=== PATIENT | female | born 1990 | race Caucasian/White ===

== ENCOUNTER 2018-12-29 10:13 | Outpatient (CLI) | payer SELFPAY ==
[2018-12-29 12:09] LABS: ADD UMIC NO; UR ASCORBIC ACID NEGATIVE (NEGATIVE); UR BILIRUBIN (Dip) NEGATIVE (NEGATIVE); UR BLOOD (Dip) NEGATIVE (NEGATIVE); UR CLARITY CLEAR (CLEAR); UR COLOR STRAW (YELLOW); UR GLUCOSE (Dip) NEGATIVE (NEGATIVE); UR KETONES (Dip) NEGATIVE (NEGATIVE); UR LEUKOCYTE ESTERASE (Dip) NEGATIVE Leu/ul (NEGATIVE); UR NITRITE (Dip) NEGATIVE (NEGATIVE); UR SPECIFIC GRAVITY (Dip) 1.004 (1.003-1.030); UR TOTAL PROTEIN (Dip) NEGATIVE (NEGATIVE); UR UROBILINOGEN (Dip) NEGATIVE (NEGATIVE)
[2018-12-29 12:09] LABS: RUPTURE FETAL MEMBRANES NEGATIVE (NEGATIVE)
== END 2018-12-29 13:03 | disposition home or self-care (01) ==
LOC: OBT 10:13 → L-D 10:13 → OBT 13:03
DX: O41.93X0 Disorder of amniotic fluid and membranes, unspecified, third trimester, not applicable or unspecified (principal); Z3A.36 36 weeks gestation of pregnancy
CPT/HCPCS: 76818; 81003; 84112

== ENCOUNTER 2019-01-13 17:22 | Inpatient (IN) | payer SELFPAY ==
[2019-01-13] MEDS ORDERED: MISOPROSTOL 200 MCG TAB PR (18:00)
[2019-01-13] MEDS ORDERED: LIDOCAINE 1% (MPF) 30 ML INJ INJ (18:00)
[2019-01-13] MEDS ORDERED: METHYLERGONOVINE 0.2 MG INJ IM (18:00)
[2019-01-13] MEDS ORDERED: OXYTOCIN 30 UNITS/LR 500 ML IV ×2 (18:00)
[2019-01-13] MEDS ORDERED: IBUPROFEN 600 MG TAB PO (18:00)
[2019-01-13] MEDS ORDERED: CARBOPROST 250 MCG INJ IM (18:00)
[2019-01-13 21:04] LABS: ADD MAN DIFF? NO
[2019-01-13 21:05] LABS: BASOPHIL # 0.1 10^3/ul (0.0-0.1); BASOPHILS % 0.6 % (0.0-2.0); EOSINOPHILS # 0.1 10^3/ul (0.0-0.5); EOSINOPHILS % 0.5 % (0.0-7.0); HEMATOCRIT 34.5 % (37.0-47.0); HEMOGLOBIN 11.2 g/dl (12.0-16.0); LYMPHOCYTES # 2.1 10^3/ul (0.8-2.9); LYMPHOCYTES % 20.2 % (15.0-51.0); MEAN CORPUSCULAR HEMOGLOBIN 28.4 pg (29.0-33.0); MEAN CORPUSCULAR HGB CONC 32.5 g/dl (32.0-37.0); MEAN CORPUSCULAR VOLUME 87.3 fl (82.0-101.0); MEAN PLATELET VOLUME 10.3 fl (7.4-10.4); MONOCYTES % 9.7 % (0.0-11.0); NEUTROPHIL # 6.8 10^3/ul (1.6-7.5); NEUTROPHILS % 66.4 % (39.0-77.0); PLATELET COUNT 178 10^3/UL (140-415); RED BLOOD COUNT 3.95 10^6/ul (4.20-5.40); RED CELL DISTRIBUTION WIDTH 13.8 % (11.5-14.5)
[2019-01-13 21:05] LABS: WHITE BLOOD COUNT 10.2 10^3/ul (4.8-10.8)
[2019-01-13 21:18] LABS: HEMOGLOBIN A1C 5.3 % (0-5.9)
[2019-01-13] MEDS: LACTATED RINGER'S 1,000 ML IV (21:22)
[2019-01-13 21:23] LABS: INR 0.85; PROTIME 11.7 Sec (11.9-14.9); PT RATIO 0.9
[2019-01-13 21:24] LABS: PARTIAL THROMBOPLASTIN TIME 23.2 Sec (23.0-35.0)
[2019-01-13 21:55] LABS: HEPATITIS B SURFACE ANTIGEN NEGATIVE (NEGATIVE)
[2019-01-13] MEDS: MISOPROSTOL 50 MCG CAPSULE PO (22:09)
[2019-01-14] MEDS: LACTATED RINGER'S 1,000 ML IV ×6 (01:31→18:05)
[2019-01-14] MEDS: MISOPROSTOL 50 MCG CAPSULE PO ×6 (02:15→23:02)
[2019-01-14] MEDS: BUTORPHANOL 2 MG INJ IV ×5 (11:58→15:39)
[2019-01-14 15:10] LABS: RAPID PLASMA REAGIN NONREACTIVE (NR)
[2019-01-14] MEDS ORDERED: FENTAnyl 2MCG/ML-ROPIV 0.2% 100 ML (16:56)
[2019-01-14] MEDS ORDERED: NALOXONE (0.4 MG/ML) INJ IV (17:00)
[2019-01-14] MEDS ORDERED: FENTAnyl 2MCG/ML-ROPIV 0.2% 100 ML BAG EPI (17:00)
[2019-01-14] MEDS ORDERED: ONDANSETRON 4 MG INJ IV (17:00)
[2019-01-14] MEDS ORDERED: DIPHENHYDRAMINE 50 MG INJ IV (17:00)
[2019-01-14] MEDS ORDERED: OXYTOCIN 30 UNITS/LR 500 ML IV (23:30)
[2019-01-15] MEDS ORDERED: AMPICILLIN 2 GM/NS (PMX) 100 ML (00:10)
[2019-01-15] MEDS: AMPICILLIN 2 GM/NS (PMX) 100 ML IV (00:11)
[2019-01-15] MEDS ORDERED: MINERAL OIL LIGHT 10 ML VIAL (00:13)
[2019-01-15] MEDS: MINERAL OIL LIGHT 10 ML VIAL TOP (01:30)
[2019-01-15] MEDS: OXYTOCIN 30 UNITS/LR 500 ML IV ×2 (01:31→07:36)
[2019-01-15] MEDS ORDERED: ACETAMINOPHEN 325 MG TAB PO (02:00)
[2019-01-15] MEDS ORDERED: HYDROCODONE/APAP (5/325) TAB PO (02:00)
[2019-01-15] MEDS ORDERED: MISOPROSTOL 200 MCG TAB PR (02:00)
[2019-01-15] MEDS ORDERED: METHYLERGONOVINE 0.2 MG TAB PO (02:00)
[2019-01-15] MEDS: SENNA/DOCUSATE NA (8.6MG/50MG) TAB PO ×3 (02:00→21:00)
[2019-01-15] MEDS ORDERED: NACL 0.9% 3 ML SYG IV (02:00)
[2019-01-15] MEDS ORDERED: CARBOPROST 250 MCG INJ IM (02:00)
[2019-01-15] MEDS ORDERED: METHYLERGONOVINE 0.2 MG INJ IM (02:00)
[2019-01-15] MEDS ORDERED: ONDANSETRON 4 MG INJ IV (02:00)
[2019-01-15] MEDS ORDERED: DIPHENHYDRAMINE 25 MG CAP PO (02:00)
[2019-01-15] MEDS ORDERED: OXYTOCIN 30 UNITS/LR 500 ML IV (02:00)
[2019-01-15] MEDS ORDERED: ZOLPIDEM 5 MG TAB PO (02:00)
[2019-01-15] MEDS: IBUPROFEN 600 MG TAB PO ×4 (02:57→17:40)
[2019-01-15] MEDS: LANOLIN HPA 1 PKT TOP (09:47)
[2019-01-15] MEDS: WITCH HAZEL/GLYCERIN PAD PR (09:47)
[2019-01-15 12:52] LABS: HEMATOCRIT 32.5 % (37.0-47.0); HEMOGLOBIN 10.4 g/dl (12.0-16.0)
[2019-01-16] MEDS: IBUPROFEN 600 MG TAB PO ×4 (00:19→17:07)
[2019-01-16 07:44] LABS: ADD MAN DIFF? NO
[2019-01-16 07:54] LABS: WHITE BLOOD COUNT 16.6 10^3/ul (4.8-10.8)
[2019-01-16 07:54] LABS: BASOPHIL # 0.1 10^3/ul (0.0-0.1); BASOPHILS % 0.8 % (0.0-2.0); EOSINOPHILS # 0.2 10^3/ul (0.0-0.5); HEMATOCRIT 33.9 % (37.0-47.0); HEMOGLOBIN 10.9 g/dl (12.0-16.0); LYMPHOCYTES # 3.2 10^3/ul (0.8-2.9); LYMPHOCYTES % 19.3 % (15.0-51.0); MEAN CORPUSCULAR HEMOGLOBIN 28.5 pg (29.0-33.0); MEAN CORPUSCULAR HGB CONC 32.2 g/dl (32.0-37.0); MEAN CORPUSCULAR VOLUME 88.5 fl (82.0-101.0); MEAN PLATELET VOLUME 10.2 fl (7.4-10.4); MONOCYTE # 1.3 10^3/ul (0.3-0.9); MONOCYTES % 8.1 % (0.0-11.0); NEUTROPHIL # 11.5 10^3/ul (1.6-7.5); NEUTROPHILS % 68.9 % (39.0-77.0); PLATELET COUNT 152 10^3/UL (140-415); RED BLOOD COUNT 3.83 10^6/ul (4.20-5.40); RED CELL DISTRIBUTION WIDTH 14.2 % (11.5-14.5)
[2019-01-16] MEDS: SENNA/DOCUSATE NA (8.6MG/50MG) TAB PO (09:00)
[2019-01-17] MEDS ORDERED: VARICELLA VACCINE LIVE/PF 1,350 UNIT/0.5 ML ML SC* (09:00)
[2019-01-17] MEDS ORDERED: DIPHTH/TET/ACEL PERTUSS (ADULT) 0.5 ML VIAL IM* (09:00)
[2019-01-17] MEDS ORDERED: MEASLES,MUMPS,RUBELLA VACCINE INJ SC* (09:00)
== END 2019-01-16 18:30 | disposition home or self-care (01) | DRG 807 ==
LOC: L-D 17:22 → PP1 01-15 02:45
PROVIDERS: Obstetrics & Gynecology Obstetrics
PROC: 3E033VJ Introduction of Other Hormone into Peripheral Vein, Percutaneous Approach (ICD-10-PCS; 2019-01-13 17:00)
DX: O34.43 Maternal care for other abnormalities of cervix, third trimester (principal); O76 Abnormality in fetal heart rate and rhythm complicating labor and delivery; O70.1 Second degree perineal laceration during delivery; Z37.0 Single live birth; Z3A.39 39 weeks gestation of pregnancy
CPT/HCPCS: 62319; 76815; 83036; 85014; 85018; 85025; 85610; 85730; 86592; 86850; 86900; 86901; 87340; 99464